=== PATIENT | male | born 1975 | race African-American/Black ===

== ENCOUNTER 2024-06-26 16:31 | Emergency (ER) | payer BC ==
[~2024-06-26] VITALS: Ht 170.2 cm; Wt 77.0 kg
[2024-06-26 16:40] VITALS: O2SAT 99
[2024-06-26 17:02] VITALS: TEMP 36.78072
[2024-06-26] MEDS: IBUPROFEN 600MG TABLET PO ONE (18:20)
[2024-06-26 19:50] VITALS: BP 170/99; PULSE 72; RESP 9; O2SAT 96
== END 2024-06-26 19:50 | disposition home or self-care (01) ==
LOC: ER 16:31
DX: M79.605 Pain in left leg (principal)
CPT/HCPCS: 73502; 93971; 99284